=== PATIENT | female | born 2000 | race Caucasian/White ===

== ENCOUNTER 2020-05-19 03:16 | Emergency (ER) | payer SELFPAY ==
[2020-05-19] MEDS ORDERED: SODIUM CHLORIDE 0.9% (FLUSH) 10 ML SYG IV PRN (03:26)
[2020-05-19] MEDS ORDERED: MORPHINE SULFATE INJ 10 MG/ML VIAL IV ONE (03:37)
[2020-05-19] MEDS ORDERED: KETOROLAC TROMETHAMINE INJ 30 MG/ML VIAL IV ONE (03:37)
[2020-05-19] MEDS ORDERED: ONDANSETRON INJ 4 MG/2 ML VIAL IV ONE (03:38)
[2020-05-19] MEDS ORDERED: SODIUM CHLORIDE 0.9% 1000ML 1,000 ML IVS ONE (03:38)
[2020-05-19] MEDS ORDERED: KETOROLAC TROMETHAMINE INJ 30 MG/ML VIAL ONE (03:39)
[2020-05-19] MEDS ORDERED: MORPHINE SULFATE INJ 10 MG/ML VIAL ONE (03:39)
[2020-05-19] MEDS ORDERED: ONDANSETRON INJ 4 MG/2 ML VIAL ONE (03:39)
--- NOTE | 2020-05-19 03:43 | ED.PDOC ---
History of Present Illness - General Chief Complaint: Abdominal Pain Stated Complaint: abd pain Time Seen by Provider: 05/19/20 03:25 Source: patient - History of Present Illness Initial Comments: 20 yo female who presents with cc of RLQ abdominal pain. Patient reports she has had a mild pain to the right lower quadrant several weeks ago but reports the pain became sharp and severe suddenly approximately 1 hour ago which awoke her from sleeping. Currently the pain is constant and rated as 6/10 severity at rest but worsens sharply with movement as well as palpation of the abdomen to 10/10 severity. No medications have been taken for relief. She states that the pain felt like a typical ovarian cyst which she has had several times in the past. However, this time it was much worse than usual. She states that she began her menstrual period 2 days ago. Denies any fevers, chills, chest pain, cough, dyspnea, dysuria/hematuria, diarrhea, constipation. Last bowel movement was yesterday and normal. She does report some nausea but no emesis. No prior abdominal surgeries reported. The patient is from [place], [place] and is visiting here for the weekend for a wedding. Her PCP is Dr. Gutierrez and genetic counsellor is Dr. Miranda in [place], [place]. Allergies/Adverse Reactions: Allergies Sulfa Antibiotics Allergy (Verified 05/19/20 03:23) Review of Systems - Review of Systems Review of Systems: 05/19/20 03:43 as per HPI All other Systems: Reviewed and Negative Past Medical History (General) - Patient Medical History Hx Seizures: No Hx Stroke: No Hx Dementia: No Hx Asthma: No Hx of COPD: No Hx Cardiac Disorders: No Hx Congestive Heart Failure: No Hx Pacemaker: No Hx Hypertension: No Hx Thyroid Disease: No Hx Diabetes: No Hx Gastroesophageal Reflux: No Hx Renal Disease: No Hx Cancer: No Hx of HIV: No Hx Hepatitis C: No Hx MRSA: No Surgical History: no surgical history - Vaccination History Hx Tetanus, Diphtheria Vaccination: No Hx Influenza Vaccination: Yes Hx Pneumococcal Vaccination: No Immunizations Up to Date: Yes - Social History Hx Tobacco Use: No Hx Chewing Tobacco Use: No Hx Alcohol Use: Yes - occasional Hx Substance Use: No Hx Substance Use Treatment: No Hx Depression: No Feels Threatened In Home Enviroment: No Feels Threatened In a Relationship: No Hx Physical Abuse: No Hx Emotional Abuse: No Hx Suspected Abuse: No - Activities of Daily Living Hospice Agency (if applicable):: None - Female History Patient is a Female of Child Bearing Age (10 -59 yrs old): Yes Patient : - currently on menses Family Medical History - Family History Mother Family History: No Known Physical Exam - Physical Exam General Appearance: Alert, Other - appears uncomfortable due to pain Eye Exam: bilateral normal Ears, Nose, Throat: normal ENT inspection, normal pharynx Neck: non-tender, full range of motion, supple, normal inspection Respiratory: chest non-tender, lungs clear, normal breath sounds, no respiratory distress, no accessory muscle use Cardiovascular/Chest: normal peripheral pulses, regular rate, rhythm, no edema, no gallop, no JVD, no murmur Peripheral Pulses: radial,right: 2+, radial,left: 2+ Gastrointestinal/Abdominal: normal bowel sounds, soft, no organomegaly, tenderness - marked ttp to RLQ with guarding and rebound noted, Rovsing and obturator signs are positive. No masses appreciated Back Exam: normal inspection, no CVA tenderness, no vertebral tenderness Extremity: normal range of motion, non-tender, normal inspection, no pedal edema, no calf tenderness, normal capillary refill, pelvis stable Neurologic: technical translator II-XII nml as tested, no motor/sensory deficits, alert, normal mood/affect, oriented x 3 Skin Exam: normal color, warm/dry Progress - Progress Progress: 05/19/20 03:44 RLQ abdominal pain -Concern for possible emergent processes such as acute appendicitis, intra- abdominal abscess, ruptured appendicitis/abscess, ovarian torsion, ruptured ovarian cyst, kidney stone, ectopic , etc. Consider also other nonemergent processes. -Vitals stable, patient afebrile -Obtain stat abdominal work-up, blood work, lactic acid, urinalysis, hCG, stat CT imaging of abdomen pelvis -Place peripheral IV, 1 L normal saline bolus, morphine 4 mg IV, Zofran 4 mg IV, Toradol 30 mg IV 05/19/20 06:14 -Pt reassessed several times throughout ED stay and has remained HD stable. Tachycardia resolved with pain medications and pt has been resting comfortably in the ED for >2 hours. Labwork including CBC, Lactate, CMP, UA largely unremarkable. Pt with small blood on UA likely from being on her menstrual period. Hcg is negative. -CT A/P with IV contrast demonstrates normal appearing appendix. There is moderate amount of fluid in the Right adnexa which extends into the Left and Right paracolic gutters and Right ovary is not distinctly apparent. Findings are thought to be c/w ruptured ovarian cyst. No other acute processes are noted. -Discussed all of the above with the pt and her boyfriend at bedside as well as diagnosis of ruptured ovarian cyst. As she has remained HD stable with normal blood counts and pain is markedly improved (now with only mild-mod ttp on exam w/o guarding or rebound, etc...), feel she is stable for discharge to home with trial of outpatient management and close f/u with her genetic counsellor doctor. Discussed at length ED return warnings in case of poorly controlled or worsening pain, continued pains with new onset fever, dizziness/lightheadedness, etc... Julio Dorsey MD Billing #[id number] 05/19/20 03:26 IV Care:Saline Lock per Protoc QSHIFT Sodium Chloride 0.9% (Flush) [Saline Flush Syringe] 10 ml IV PRN PRN 05/19/20 03:39 Hold Metformin x 48Hrs [id number] 05/19/20 05:56 BLOOD CULTURE Stat Laboratory Results - last 24 hr 05/19/20 05/19/20 05/19/20 03:17 03:17 03:17 WBC 7.1 RBC 4.44 Hgb 12.8 Hct 37.0 MCV 83.4 MCH 28.8 MCHC 34.5 RDW 12.9 Plt Count 276 MPV 8.8 Absolute Neuts (auto) 2.90 Absolute Lymphs (auto) 3.20 Absolute Monos (auto) 0.70 Absolute Eos (auto) 0.20 Absolute Basos (auto) 0.10 Neutrophils % 41.2 L Lymphocytes % 44.8 Monocytes % 9.5 H Eosinophils % 3.1 Basophils % 1.4 Sodium 140 Potassium 3.6 Chloride 106 Carbon Dioxide 20 L Anion Gap 17.6 BUN 13 Creatinine 0.71 BUN/Creatinine Ratio 18.3 Random Glucose 90 Serum Osmolality 279.0 Lactic Acid Calcium 9.0 Total Bilirubin 0.5 Direct Bilirubin 0.1 Indirect Bilirubin 0.4 AST 18 ALT 12 Alkaline Phosphatase 54 Serum Total Protein 7.9 Albumin 4.9 Serum HCG, Qual Negative Urine Color Urine Appearance Urine pH Ur Specific [place] Urine Protein Urine Glucose (UA) Urine Ketones Urine Blood Urine Nitrite Urine Bilirubin Urine Urobilinogen Ur Leukocyte Esterase Urine RBC Urine WBC Ur Epithelial Cells Urine Bacteria 05/19/20 05/19/20 03:43 04:39 WBC RBC Hgb Hct MCV MCH MCHC RDW Plt Count MPV Absolute Neuts (auto) Absolute Lymphs (auto) Absolute Monos (auto) Absolute Eos (auto) Absolute Basos (auto) Neutrophils % Lymphocytes % Monocytes % Eosinophils % Basophils % Sodium Potassium Chloride Carbon Dioxide Anion Gap BUN Creatinine BUN/Creatinine Ratio Random Glucose Serum Osmolality Lactic Acid 1.4 Calcium Total Bilirubin Direct Bilirubin Indirect Bilirubin AST ALT Alkaline Phosphatase Serum Total Protein Albumin Serum HCG, Qual Urine Color Yellow Urine Appearance Clear Urine pH 6.0 Ur Specific [place] 1.010 Urine Protein Negative Urine Glucose (UA) Negative Urine Ketones Negative Urine Blood Small H Urine Nitrite Negative Urine Bilirubin Negative Urine Urobilinogen 0.2 Ur Leukocyte Esterase Negative Urine RBC 0-1 Urine WBC 0-1 Ur Epithelial Cells 1-3 Urine Bacteria Rare Departure - Departure Clinical Impression: Rupture of cyst of right ovary Time of Disposition: 06:21 Disposition: Discharge to Home or Self Care Condition: Good Departure Forms: ED Discharge - Pt. Copy, Patient Portal Self Enrollment Instructions: DI for Abdominal Pain-Adult, Ovarian Cyst (DC) Diet: resume usual diet Activity: increase activity as tolerated Additional Instructions: Remain well-hydrated and gradually advance your diet and activity level as tolerated. Continue to take [id number] medications to help reduce pain and inflammation such as ibuprofen 600 to 800 mg every 6-8 hours as needed and Tylenol 650 mg every 6 hours as needed. You may take the Tylenol 3 as directed for breakthrough pain but do not drive or operate heavy machinery while taking as it may make you drowsy. You may take the Zofran as directed for nausea. Return immediately to the ED if you develop any worsening of symptoms or any new or concerning symptoms such as worsening abdominal pain, new onset fever, dizziness or lightheadedness, pale discoloration of the skin, etc. It is advised that you follow-up in the next 1 to 2 weeks with your [facility] doctor for ruptured ovarian cyst for repeat evaluation and further outpatient management.
--- NOTE | 2020-05-19 05:44 | CT ---
EXAM DESCRIPTION: Abdomen/Pelvis w/Contrast CLINICAL HISTORY:20 years Female, acute severe RLQ pain Comparison: None TECHNIQUE: Contiguous axial CT images of the abdomen and pelvis were obtained. Sagittal and coronal reformats were reviewed. This exam was performed according to our departmental dose-optimization program, which includes automated exposure control, adjustment of the mA and/or kV according to patient size and/or use of iterative reconstruction technique. FINDINGS: Lung bases: Clear. Liver:Unremarkable. No focal liver lesion. Gallbladder:Unremarkable. No gallstones. No gallbladder wall thickening or pericholecystic fluid. Spleen:Unremarkable Pancreas: Pancreas is unremarkable. Adrenal glands:Within normal limits. Kidneys/ureters:Within normal limits Stomach/small bowel/colon: Stomach is unremarkable. Small bowel is unremarkable. Colon is unremarkable. Appendix: No evidence of appendicitis. Peritoneum: No free fluid. Vascular structures: within normal limits Lymph nodes: No abnormal lymph nodes. Bladder:Unremarkable. Pelvic organs: There is hyperdense fluid in the adnexa, right greater than left. The left ovary is normal in appearance. The right ovary is indistinct. Small amount of hyperdense fluid also extends into the left and right paracolic gutter. Bones: No acute osseous abnormality. Soft tissues: Unremarkable.. IMPRESSION: Normal appendix. Hyperdense fluid in the pelvis right greater than left may represent recently ruptured hemorrhagic cyst. The right ovary is indistinct. Pelvic ultrasound may provide additional information. Electronically signed by: Heron Burch DO 05/19/2020 5:41 AM [employer]
[2020-05-19] MEDS ORDERED: ACETAMINOPHEN W/COD #3 TAB (ER Disp) PO ONE (06:13)
[2020-05-19] MEDS ORDERED: ONDANSETRON ODT (ER DISP) 8 MG TAB PO ONE ×2 (06:13→06:18)
[2020-05-19] MEDS ORDERED: ACETAMINOPHEN W/COD #3 TAB (ER Disp) ONE (06:18)
[2020-05-19 06:31] VITALS: BP 106/64; TEMP 98.2; O2SAT 100
== END 2020-05-19 06:34 | disposition home or self-care (01) ==
LOC: ER 03:16
DX: N83.201 Unspecified ovarian cyst, right side (principal); R00.0 Tachycardia, unspecified; Z88.2 Allergy status to sulfonamides; Z87.42 Personal history of other diseases of the female genital tract
CPT/HCPCS: 74177; 80048; 80076; 81001; 83605; 84703; 85025; J1885; J2270; J2405; J7030